=== PATIENT | female | born 1945 | race African-American/Black ===

== ENCOUNTER → 2017-08-07 13:48 | Outpatient (CLI) | payer MEDICARE, SELFPAY ==
--- NOTE | 2017-08-07 14:01 | VDLE_ITS ---
Reason For Study: Leg Edema RIGHT LEFT GSV is normal. CFV is compressible, spontaneous, phasic, CFV is compressible, spontaneous, phasic, competent, and demonstrates normal competent and demonstrates normal augmentation. augmentation. FV is compressible, spontaneous, phasic, competent and demonstrates normal augmentation. POP V is compressible, spontaneous, phasic, competent and demonstrates normal augmentation. T/P Trunk is compressible. PTV is compressible. RT PerV is compressible. Procedure Exam performed in department. A preliminary report was called and/or faxed to Latoya Desir. Interpretation Summary Deep veins of the right lower extremity are patent and compressible segmentally. There is no evidence of right lower extremity deep vein thrombosis. Valvular competence appears intact within the proximal deep venous system on the right . The right greater saphenous vein appears patent and compressible segmentally. Ordering Physician: Latoya Desir Referring Physician: Phil Zelaya Performed By: Kesha Torrez, GABRIELLE, RVT
== END ==
PROVIDERS: Family Provider Family Medicine; PCP Family Medicine
DX: R60.0 Localized edema (principal)
CPT/HCPCS: 93971

== ENCOUNTER → 2017-08-19 15:23 | Outpatient (CLI) | payer MEDICARE, SELFPAY ==
[2017-08-19 17:46] LABS: Albumin, Serum 3.7 g/dL (3.2-5.0); BUN 21 mg/dL (7-18); BUN/Creat Ratio 17.6 RATIO (10-20); Calcium,Total 9.5 mg/dL (8.5-10.1); Chloride 106 mmol/L (98-107); Creatinine, Serum 1.19 mg/dL (0.55-1.02); EST Glomerular Filtration Rate 47 mL/min (>60); Est Glom Filt Rate - Afr Amer 57 mL/min (>60); Glucose 78 mg/dL (74-106); Phosphorus 2.2 mg/dL (2.5-4.9); Potassium 4.2 mmol/L (3.5-5.1); Sodium Level 140 mmol/L (136-145)
== END ==
PROVIDERS: Family Provider Family Medicine; PCP Family Medicine; Visit Provider Internal Medicine Nephrology
DX: N17.9 Acute kidney failure, unspecified (principal)
CPT/HCPCS: 36415; 80069

== ENCOUNTER → 2017-09-15 12:00 | Outpatient (CLI) | payer MEDICARE, SELFPAY ==
[2017-09-15 13:03] LABS: Albumin, Serum 3.6 g/dL (3.2-5.0); BUN 18 mg/dL (7-18); BUN/Creat Ratio 16.2 RATIO (10-20); Calcium,Total 9.4 mg/dL (8.5-10.1); Chloride 106 mmol/L (98-107); Creatinine, Serum 1.11 mg/dL (0.55-1.02); EST Glomerular Filtration Rate 51 mL/min (>60); Est Glom Filt Rate - Afr Amer 62 mL/min (>60); Glucose 107 mg/dL (74-106); Phosphorus 2.7 mg/dL (2.5-4.9); Potassium 4.1 mmol/L (3.5-5.1); Sodium Level 139 mmol/L (136-145)
== END ==
PROVIDERS: Family Provider Family Medicine; PCP Family Medicine; Visit Provider Internal Medicine Nephrology
DX: N17.9 Acute kidney failure, unspecified (principal)
CPT/HCPCS: 36415; 80069

== ENCOUNTER 2018-01-11 15:05 | Emergency (ER) | payer MEDICARE, SELFPAY ==
[2018-01-11 15:06] VITALS: BP 141/90; PULSE 61; RESP 18; TEMP 36.2; O2SAT 98; BMI 44.9
--- NOTE | 2018-01-11 15:08 | RAD_ITS ---
STUDY: X-RAY - RIGHT FOOT CLINICAL: Female, 73 years old. Pain of the great toe following recent injury. TECHNIQUE: 3 view(s) of the foot. COMPARISON: None. FINDINGS: There is a plantar calcaneal spur. Normal visualized subtalar, talonavicular, calcaneocuboid, tarsal and tarsometatarsal articulations. Normal metatarsi. Normal metatarsophalangeal joint of the great toe. Normal tibial and fibular sesamoid bones. Normal interphalangeal joint of the great toe. Nondisplaced oblique fracture of the proximal phalanx of the great toe. Normal second through fifth metatarsophalangeal joints. Normal interphalangeal joints and phalanges of the lesser toes. Diffuse soft tissue swelling. RAD/Foot min 3 Views IMPRESSION: Nondisplaced oblique fracture of the middle phalanx of the great toe with diffuse soft tissue swelling. Plantar spur. Electronically Signed: Gianfranco Shea MD at 15:36 EDT Tel [phone], Service support ,
--- NOTE | 2018-01-11 16:17 | ED.VISSUMM ---
- ER Visit Summary Date of Service: 01/11/18 Chief Complaint: Toe pain History of Present Illness: The patient is a 73 F with right great toe pain. This has been going on for a week. The patient started to have the pain after she fell on the stairs. Denies any other injuries or complaints. Physical Examination: Right great toe diffusely swollen. Tender to palpation. Skin intact. Neurovascular intact distally. Test Results: X-rays show a fracture through the middle phalanx of the great toe. Emergency Department Course and Treatment: Patient placed in a boot. She has a walker at home to use. Percocet. Rest, ice, elevate. Treatment Plan: As above Disposition: Discharged Impression: 1. Right great toe fracture This note was generated with TeraDi[employer] dictation software. It may contain incorrect words, spelling, and punctuation that were not noted in review of the chart prior to signing ED Disposition - Plan for ED Patient: Chief Complaint: Lower Extremity Injury Referrals: Tracy Shelton MD [Primary Care Provider] -
--- NOTE | 2018-01-11 16:19 | ED.DEP ---
ED Disposition - Plan for ED Patient: Chief Complaint: Lower Extremity Injury Instructions: ED Fx Toe Closed Prescriptions: Oxycodone HCl/Acetaminophen [Percocet 5/325] 1 tab PO Q6H PRN PRN 3 Days #12 tab PRN Reason: Pain Referrals: Phil Small DPM [STAFF PHYSICIAN] -
[2018-01-11 16:21] VITALS: PULSE 88; RESP 16; O2SAT 99
== END 2018-01-11 16:31 | disposition home or self-care (01) ==
LOC: ED 16:02
PROVIDERS: Emergency Provider Emergency Medicine; Family Provider Internal Medicine; PCP Internal Medicine
DX: S92.491A Other fracture of right great toe, initial encounter for closed fracture (principal); W10.9XXA Fall (on) (from) unspecified stairs and steps, initial encounter; Y93.9 Activity, unspecified
CPT/HCPCS: 73630; 99282

== ENCOUNTER → 2018-12-03 14:00 | Outpatient (CLI) | payer MEDICARE, SELFPAY ==
[2018-12-03 15:08] LABS: Absolute Lymphocyte Count 1.69 X10^3/uL (0.83-4.51); Absolute Neutrophil Count 2.7 X10^3/uL (2.0-7.7); Basophil# 0.03 X10^3/uL; Basophil% 0.6 % (0-1); Eosinophil# 0.17 X10^3/uL; Eosinophils% 3.4 % (0-5); Hematocrit 35.6 % (37-47); Hemoglobin 10.7 g/dL (12.0-15.0); Lymphocyte # 1.69 X10^3/ul (4.0); Lymphocyte % 33.4 % (19-41); Mean Corp Hgb Conc 30.1 g/dL (32-36); Mean Corpuscular Hgb 27.9 pg (27.0-32.0); Mean Platelet Vol. 10.9 fl (6.2-12.0); Monocyte# 0.51 X10^3/uL; Monocyte% 10.1 % (0-10); NRBC Flagged by Analyzer 0 % (0-5); Neutrophil # 2.65 X10^3/uL (2.7-7.7); Neutrophil % 52.3 % (47-70); Platelet Count 204 K/mm3 (150-450); RBC Distribution Width CV 12.3 % (11.6-14.6); RBC Distribution Width SD 41.6 fl (35.1-43.9); Red Blood Count 3.83 M/mm3 (4.2-5.4); White Blood Count 5.1 K/mm3 (4.4-11.0)
[2018-12-03 15:18] LABS: Erythrocyte Sedimentation Rate 13 mm/hr (0-30)
[2018-12-03 15:25] LABS: CRP 8.62 mg/L (0.0-3.0)
== END ==
PROVIDERS: Family Provider Internal Medicine; PCP Internal Medicine; Referring Provider Physician Assistant; Visit Provider Physician Assistant
DX: Z96.642 Presence of left artificial hip joint (principal)
CPT/HCPCS: 36415; 85025; 85652; 86140

== ENCOUNTER → 2018-12-23 10:01 | Outpatient (CLI) | payer MEDICARE, SELFPAY ==
--- NOTE | 2018-12-23 10:03 | NM_ITS ---
CLINICAL: 73-year-old female with reported history of painful left hip arthroplasty operated approximately 11 years previous. LIMITED 99m Tc MDP THREE PHASE BONE SCINTIGRAPHY COMPARISON: None available FINDINGS: Following the intravenous administration of 27.6 mCi of 99m Tc MDP, three-phase bone acquisitions of the pelvis reveal: 1. The flow and immediate static blood pool acquisitions demonstrate normal arterial and venous phase distribution of the radiopharmaceutical. 2. Delayed images depict mild increased radiopharmaceutical concentration identified in the intertrochanteric aspect of the symptomatic left hip arthroplasty in greater trochanteric aspect of the presumed nonpainful right hip prosthesis. 3. Facilitated tracer concentration is identified in the third and fifth lumbar vertebra, posterior midline sacrum and visualized knee articulations bilaterally. 4. The remaining limited skeletal structures are scintigraphically unremarkable. NM/Bone Scan Three Phase IMPRESSION: 1. The increase in radiopharmaceutical concentration identified in the intertrochanteric aspect of the symptomatic left hip prosthesis may represent minimal loosening in the setting of operative intervention > 2 years prior to the current presentation. If an infectious etiology is a diagnostic consideration, correlation with labeled leukocyte imaging is recommended. 2. 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 Electronically Signed: Kel Rocha DO at 23:37 EDT Tel , Service support ,
== END ==
PROVIDERS: Family Provider Internal Medicine; PCP Internal Medicine; Referring Provider Physician Assistant; Visit Provider Physician Assistant
DX: Z96.642 Presence of left artificial hip joint (principal)
CPT/HCPCS: 78315

== ENCOUNTER → 2023-03-03 | Outpatient (CLI) | payer MEDICARE, SELFPAY ==
--- NOTE | 2023-03-03 10:30 | PET_ITS ---
EXAMINATION: FDG PET/CT ? INDICATIONS: 78-year-old female with a history of breast carcinoma, presenting for restaging examination. ? COMPARISON EXAMINATION: None available. ? INDEX LESION SIZE SUV INTERPRETATION Breast (n=multiple) 28.5 mm, largest 3.7 max Fulfills quantitative criteria for malignant transformation ? TECHNIQUE: Following the intravenous administration of 15.8 mCi of F-18 deoxyglucose via the right antecubital fossa, multiplanar image acquisitions of the head, neck, chest, abdomen and pelvis to the level of the midthigh, obtained at one-hour post radiopharmaceutical administration contemporaneously interpreted with the current CT of the chest, abdomen and pelvis dated 03/03/2023 via coregistration reveal: ? SERUM GLUCOSE LEVEL:? 106 mg/dL? HEIGHT:?? 61 inches WEIGHT:?? 240 pounds ? FINDINGS: ? HEAD/NECK:? There is no evidence of abnormal increased glucose metabolism in the pharyngeal mucosal space, parapharyngeal space, oropharynx, bilateral-lateral and anterior neck, hypopharynx and distribution of the larynx. ? The visualized portion of the cerebral cortical-subcortical structures demonstrate symmetric and preserved glucose metabolism. ? CHEST:? Multifocally increased radiopharmaceutical concentration is defined within the left breast. The calculated maximum standard uptake value is 3.7. The largest corresponding soft tissue density demonstrates a maximal axial diameter of 28.5 mm.? ? CT of the chest demonstrates the following anatomic characteristics: There are no parenchymal densities-nodules defined in the right and left hemithorax with quantitatively significant increased glucose concentration. Bilateral axillary soft tissue densities are ametabolic. A noncalcified, rounded parenchymal density noted in the left mid posteromedial lung zone, superior segment of left lower lobe, is ametabolic. ? ABDOMEN/PELVIS:? Normal physiologic distribution of the radiopharmaceutical is identified in the hepatic (0.5) and splenic parenchyma, both renal units, urinary bladder, and visualized intestinal tract. Diffuse intestinal tract is identified in all four quadrants of the abdomen and pelvis. ? CT of the abdomen and pelvis is remarkable for the following: Beam-hardening artifact attributed to bilateral hip arthroplasties compromise evaluation of the lower pelvic CT acquisition. Subcentimeter bilateral inguinal soft tissue densities are ametabolic. Atherosclerotic calcification is defined in the abdominal aorta without evidence of dilatation, aneurysm formation. Pelvic arterial calcification is observed. Cholelithiasis is defined. Cyst formation is noted in the left kidney. ? SKELETAL:? Degenerative changes defined in the thoracic and lumbar spine demonstrate no evidence of increased glucose metabolism. There are no sclerotic, mixed sclerotic-lytic, or primarily lytic changes defined in the axial skeletal structures with evidence of increased FDG uptake. ? PET/PET/CT Tumor Base -Thigh Subs IMPRESSION: 1. ABNORMAL EXAMINATION INDICATIVE OF MALIGNANT-VIABLE NEOPLASM. 2. Increased tracer distribution defined in the left breast in several different locations fulfills quantitative criteria for malignant transformation. 3. No other quantitatively significant hypermetabolic abnormalities are noted. Electronic Signature Kel Rocha D.O. Accurate Quantification of SUVs for this report are calculated using the exclusive [employer]. (U.S. Patent No. [id number] [id number] B2 [phone] [place] patent [phone] [id number] [phone]). Standardization and correction of the FDG SUV metric via [employer] technology allow for vendor non-specific objective quantitative examination comparison and optimization of the sensitivity and specificity of the FDG PET-CT examination. . [email or web address] ? Electronically Signed: Kel Rocha DO at 23:34 EST ,
== END | disposition home or self-care (01) ==
PROVIDERS: PCP Internal Medicine; Referring Provider Internal Medicine Hematology & Oncology; Visit Provider Internal Medicine Hematology & Oncology
DX: C50.512 Malignant neoplasm of lower-outer quadrant of left female breast (principal); Z17.0 Estrogen receptor positive status [ER+]
CPT/HCPCS: 78815; A9552

== ENCOUNTER 2024-04-08 18:02 | Observation (INO) | payer MEDICARE, SELFPAY ==
[2024-04-08] VITALS (11 sets, daily range): BP systolic 164–229; BP diastolic 74–104; PULSE 64–87; RESP 15–20; TEMP 36.6–36.9; O2SAT 95–98; BMI 48.3
--- NOTE | 2024-04-08 18:15 | ED.RN ---
PT. EXPRESSED SHE WAS FRUSTRATED THAT A PT. WAS SEEN BY THIS TRIAGE NURSE BEFORE THEM. I ATTEMPTED TO EDUCATE PT. AND HER S/O OF THE TRIAGE SYSTEM WHICH HELPED TO CALM THE PT. AT THE TIME.
--- NOTE | 2024-04-08 18:17 | EDS_ITS ---
<Statement entered by Catrachito Joseph DO - 04/09/24 00:45> Patient was seen and examined with physician hotel administrative assistant Chelsy All components of the history and physical confirmed and agreed. History of present illness and physical exam: Patient is a 79-year-old female with past medical hypertension, hyperlipidemia, GERD who presents to the emergency department with a chief complaint of shortness of breath on exertion. States that for the past several days she noted that she can only walk a very short period of time without becoming very winded and short of breath. She states that she has to sit down and rest before she can catch her breath. Patient states that she does not wear oxygen at home. Patient denies any recent travel history denies any history of blood clots. Review of systems: Agree with above Physical exam: Agree with above MDM Patient is a 79-year-old female who presents to the emergency department chief complaint of shortness of breath on exertion. On the differential diagnose includes but limited to upper respiratory infection secondary viral etiology, pneumonia, pneumothorax, CHF. Once workup is obtained reviewed she will be reevaluated. Patient CBC showed a white blood count of 3, hemoglobin 10.8, platelet count was noted be 199. Patient sodium normal at 141, potassium was 3.8, creatinine was 1.05. Patient's troponin was noted be 8 with a proBNP noted be 62.9 however she is obese and this could be falsely low. Patient's EKG was reviewed and independently interpreted by myself showed sinus rhythm with a rate of 76 bpm. Patient's chest x-ray reviewed by myself and by radiology which showed no acute cardiopulmonary processes. Patient was ambulated here in the emergency department and she had evidence hypoxia to 88% on room air and was very short of breath. Patient was noted be hypertensive here in the emergency department as well however her blood pressure slowly dropped therefore we held off on further treatment for this. At this point time to discuss case with hospitalist for admission Dr. Gracia who accept the patient for admission. Patient was notified and is agreeable this plan as well as her significant other at bedside all question concerns answered. Plan: Final impression: Dyspnea on exertion Hypertension Disposition: Patient will be admitted to the hospital further evaluation management Supervising attending attestation: Catrachito Joseph D.O. [facility] History of Present Illness Chief Complaint: Shortness of Breath Narrative Narrative: 79-year-old female with past medical history of HTN, HLD, GERD presents with dyspnea on exertion for about a week. She states she is short of breath just with taking a few steps in her home. She has to sit and rest. She has no chest pain. She denies cardiopulmonary history. She does not wear home oxygen. [facility] Medical History (Updated 04/08/24 @ 20:00 by NAY Valera) High cholesterol HTN (hypertension) Home Medications ?Medication ?Instructions ?Recorded ?Last Taken ?Type Omeprazole [Prilosec] 40 mg PO DAILY 01/21/13 Unknown History cholecalciferol (vitamin D3) 50 2,000 unit PO DAILY 01/21/13 Unknown History mcg (2,000 unit) tablet (Vitamin D3) metoprolol tartrate 100 mg tablet 50 mg PO DAILY 01/21/13 04/14/16 04:30 History biotin 2,500 mcg capsule 5,000 mcg PO DAILY 04/10/16 Unknown History cyanocobalamin (vitamin B-12) 2,000 mcg PO DAILY 04/10/16 Unknown History 2,000 mcg tablet diazepam 2 mg tablet 2 mg PO PRN PRN NERVOUS STOMACH 04/10/16 Unknown History anastrozole 1 mg tablet 1 mg PO DAILY 04/08/24 Unknown History hydrochlorothiazide 12.5 mg capsule 12.5 - 25 mg PO DAILY 04/08/24 Unknown History losartan 25 mg tablet 25 mg PO DAILY 04/08/24 Unknown History pravastatin 10 mg tablet 10 mg PO DAILY 04/08/24 Unknown History Allergy/AdvReac Type Severity Reaction Status Date / Time bupropion Allergy Unknown Verified 04/08/24 18:04 cimetidine (From Tagamet) Allergy Unknown Verified 04/08/24 18:04 cimetidine HCl (From Tagamet) Allergy Unknown Verified 04/08/24 18:04 hydrocodone bitartrate (From Allergy Unknown Verified 04/08/24 18:04 Vicodin) moexipril HCl (From Univasc) Allergy Unknown Verified 04/08/24 18:04 Social History Smoking Status: Never smoker ROS ROS ED ROS Narrative Constitutional: Negative for fever, chills, malaise. CVS: Negative for palpitations, chest pain, syncope. Respiratory: Positive for shortness of breath, cough. GI: Negative for abdominal pain, nausea, vomiting, diarrhea, melena, hematochezia. EXAM Physical Exam Narrative Exam Narrative: CONST: Patient sitting in no acute distress. EYES: Normal inspection. NECK: Normal inspection. RESP: No respiratory distress, CTAB. CVS: Regular rate and rhythm, no murmur, no gallop. ABD: Soft and nontender, no guarding or rebound, nondistended. SKIN: Color normal, no rash, warm, dry, intact. EXTREMITIES: Symmetric significant bilateral lower extremity lymphedema. NEURO: Alert and answering questions appropriately. PSYCH: Normal affect. Const Vital Signs: 04/08/24 18:04 04/08/24 18:55 04/08/24 19:05 Temperature 98 F 98 F Temperature Source Oral Temporal Pulse Rate 87 72 Respiratory Rate 16 20 H Respiratory Effort Normal Non-Labored Respiratory Depth Normal Respiratory Pattern Normal Blood Pressure 210/88 H 229/80 H Blood Pressure Mean 128 129 Pulse Ox 95 97 Oxygen Delivery Method Room Air Room Air Room Air 04/08/24 19:08 04/08/24 20:00 04/08/24 20:03 Temperature 98.3 F 98.3 F Temperature Source Oral Oral Pulse Rate 70 64 66 Respiratory Rate 18 20 H 16 Respiratory Effort Respiratory Depth Respiratory Pattern Blood Pressure 195/85 H 164/104 H 167/104 H Blood Pressure Mean 121 124 125 Pulse Ox 95 95 97 Oxygen Delivery Method Room Air Room Air Room Air 04/08/24 20:24 Temperature 98.3 F Temperature Source Pulse Rate 67 Respiratory Rate 15 Respiratory Effort Respiratory Depth Respiratory Pattern Blood Pressure 167/104 H Blood Pressure Mean 125 Pulse Ox 98 Oxygen Delivery Method MDM MDM MDM Narrative Medical decision making narrative: History gathered from: Patient, spouse Differential includes but not limited to: Viral URI, pneumonia, ACS, obesity hypoventilation Patient reports cough and dyspnea on exertion. She appears well and nontoxic. BP was 210/88 with otherwise normal vital signs. She reports compliance with chlorthalidone and metoprolol in the morning. Heart is regular and lungs are clear. She has bilateral lymphedema which she states is chronic. Labs show chronic leukopenia at 3.0 and anemia at 10.8. Platelets are normal at 199. Chemistry and renal function overall unremarkable. BNP is normal at 62.9. CXR negative, respiratory viral swab is also negative. With ambulation she was very dyspneic and dropped to 88%. Case was discussed with the hospitalist for admission. Lab Data Attestation: I reviewed the patient's lab results. Labs: Laboratory Results - last 24 hr 04/08/24 18:55 WBC 3.0 L RBC 3.77 L Hgb 10.8 L Hct 34.7 L MCV 92.0 MCH 28.6 MCHC 31.1 L RDW Std Deviation 42.8 RDW Coeff of Danyel 12.7 Plt Count 199 MPV 10.6 Immature Gran % (Auto) 0.300 Neut % (Auto) 42.3 L Lymph % (Auto) 32.7 Craig % (Auto) 18.3 H Eos % (Auto) 4.7 Baso % (Auto) 1.7 H Absolute Neuts (auto) 1.3 L Absolute Lymphs (auto) 0.98 Nucleated RBC % 0 Sodium 141 Potassium 3.8 Chloride 109 H Carbon Dioxide 30.0 Anion Gap 2 L BUN 13 Creatinine 1.05 H Est GFR (MDRD) Af Amer 65 Est GFR (MDRD) Non-Af 54 L BUN/Creatinine Ratio 12.4 Glucose 156 H Calcium 9.7 Troponin I High Sens 8 B-Natriuretic Peptide 62.9 Radiography Diagnostic Testing: Clinical Impression(s) from Imaging Studies Chest X-Ray 04/08/24 19:20 IMPRESSION: No radiographic evidence of acute cardiopulmonary disease. Electronically Signed: Rolan Galdamez MD at 19:40 EST , ED attending interpretation of 2 view chest x-ray shows normal heart size, no acute infiltrate, edema, or effusion. EKG Initial EKG: Attestation: I personally reviewed and interpreted this EKG as follows: Interpretation: Sinus Rhythm and No Acute Injury Pattern Comments: Normal sinus rhythm at 76 bpm Normal axis, normal intervals No acute ischemic change Discharge Plan Triage Chief Complaint: Shortness of Breath ED Midlevel Provider: Chelsy Smith ED Provider: Catrachito Joseph Dx/Rx/DC Orders Clinical Impression: Dyspnea on exertion, Hypoxia, Edema, peripheral, Chronic anemia, Chronic leukopenia Prescriptions: No Action metoprolol tartrate 100 MG tablet 50 mg PO DAILY Patient Comments: HEART RATE/BLOOD PRESSURE cholecalciferol (vitamin D3) [Vitamin D3] 2,000 UNIT tablet 2,000 unit PO DAILY Patient Comments: SUPPLEMENT Omeprazole [Prilosec] 40 MG capsule 40 mg PO DAILY Patient Comments: ACID REFLUX diazepam 2 MG tablet 2 mg PO PRN PRN (Reason: NERVOUS STOMACH) biotin 2,500 MCG capsule 5,000 mcg PO DAILY cyanocobalamin (vitamin B-12) 2,000 MCG tablet 2,000 mcg PO DAILY anastrozole 1 mg tablet 1 mg PO DAILY losartan 25 mg tablet 25 mg PO DAILY hydrochlorothiazide 12.5 mg capsule 12.5 - 25 mg PO DAILY pravastatin 10 mg tablet 10 mg PO DAILY Primary Care Provider: Tracy Shelton Referrals: Tracy Shelton MD [Primary Care Provider] - Print Language: Faroese
--- NOTE | 2024-04-08 18:50 | ED.RN ---
pt unhappy about having to wait in triage. pt felt that she should be brought back straight and not have to fill out the triage paper. this nurse went in to do a Covid/RSV/Swab and pt refused. Youre not sticking that up my nose. pt eventually decided she wanted the swab.
[2024-04-08 19:12] LABS: Absolute Lymphocyte Count 0.98 X10^3/uL (0.83-4.51); Absolute Neutrophil Count 1.3 X10^3/uL (2.0-7.7); Basophil# 0.05 X10^3/uL; Basophil% 1.7 % (0-1); Eosinophil# 0.14 X10^3/uL; Eosinophils% 4.7 % (0-5); Hematocrit 34.7 % (37-47); Hemoglobin 10.8 g/dL (12.0-15.0); Lymphocyte # 0.98 X10^3/ul (0.83-4.51); Lymphocyte % 32.7 % (19-41); Mean Corp Hgb Conc 31.1 g/dL (32-36); Mean Corpuscular Hgb 28.6 pg (27.0-32.0); Mean Platelet Vol. 10.6 fl (6.2-12.0); Monocyte# 0.55 X10^3/uL; Monocyte% 18.3 % (0-10); NRBC Flagged by Analyzer 0 % (0-5); Neutrophil # 1.27 X10^3/uL (2.7-7.7); Neutrophil % 42.3 % (47-70); Platelet Count 199 K/mm3 (150-450); RBC Distribution Width CV 12.7 % (11.6-14.6); RBC Distribution Width SD 42.8 fl (35.1-43.9); Red Blood Count 3.77 M/mm3 (4.2-5.4)
--- NOTE | 2024-04-08 19:20 | RAD_ITS ---
EXAM: XR CHEST, 2 VIEWS CLINICAL INDICATION: cough TECHNIQUE: Frontal and lateral views of the chest. COMPARISON: 09/15/2013 FINDINGS: LUNGS AND PLEURAL SPACES: Unremarkable. No consolidation or edema. No pneumothorax. No effusion. HEART: Unremarkable. Cardiac silhouette not enlarged. MEDIASTINUM: Central airways and mediastinal contour are unremarkable. BONES/JOINTS: Unremarkable. No acute fracture. SOFT TISSUES: Unremarkable. RAD/Chest PA and Lateral IMPRESSION: No radiographic evidence of acute cardiopulmonary disease. Electronically Signed: Rolan Galdamez MD at 19:40 EST ,
[2024-04-08 19:24] LABS: Anion Gap 2 (5-15); BUN 13 mg/dL (7-18); BUN/Creat Ratio 12.4 RATIO (10-20); Calcium,Total 9.7 mg/dL (8.5-10.1); Chloride 109 mmol/L (98-107); Creatinine, Serum 1.05 mg/dL (0.55-1.02); EST Glomerular Filtration Rate 54 mL/min (>60); Est Glom Filt Rate - Afr Amer 65 mL/min (>60); Glucose 156 mg/dL (74-106); Potassium 3.8 mmol/L (3.5-5.1); Sodium Level 141 mmol/L (136-145); Troponin-I HS 8 pg/mL (3.0-54.0)
[2024-04-08 19:27] LABS: BNP,B-Type NATRIURETIC PEPTIDE 62.9 pg/mL (0-100)
--- NOTE | 2024-04-08 21:26 | HP.PCM.HOS_ITS ---
[facility] - General General Date of Admission: 04/08/24 Date of Service: 04/08/24 Chief Complaint: SOB. HPI Narrative IGNACIA FORTE, is a 79 F with a past medical history of essential hypertension; on losartan, metoprolol and hydrochlorothiazide, hyperlipidemia; on pravastatin, morbid obesity; with BMI of 48.3 this admission, history of suspected Left breast CA (2016); with patient declining excisional biopsy on anastrozole, history of colonic polyposis; s/p polypectomy (2016), history of mild gastritis on EGD (2013), chronic leukopenia, chronic anemia, history of anxiety causing nervous stomach; on as needed diazepam, history of iridocyclitis (2016), history of GERD; previously on omeprazole but symptoms now controlled by 4 chocolate candies daily, OA and chronic bilateral lower extremity lymphedema who presents to [facility] ER complaining of shortness of breath. Mrs. Forte reports her symptoms began approximately 1 week prior to admission with initially mild dyspnea on exertion that progressed to shortness of breath just taking a few steps in her home causing her to come in for further evaluation and treatment. She states that sitting and resting helps partially relieve her dyspnea with additional complaints of intermittent nonproductive cough and mild wheezing. She states she has been taking her antihypertensive medications as prescribed. She denies associated chest pain, history of coronary artery disease, history of VTE and she does not wear home oxygen. There was no report of fever, chills, nausea, vomiting, diarrhea, constipation, blood in stools or headache but she does admit to recently being exposed to a sick family member who recently due to complications related to a severe urinary infection. The patient's was present at the bedside and he helped to augment the history. In the ER she was noted to have an initial elevated blood pressure of 210/88 mmHg consistent with suspected Hypertensive Urgency complicated by clinical evidence of suspected Acute Bronchitis and Acute Respiratory Insufficiency with patient started on 2L NC after oxygen saturation dropped to 88% with ambulation with severe dyspnea. She was then admitted to the PCU under observation status for ongoing care for stay that is expected to be less than 2 midnights. [facility] Medical History High cholesterol HTN (hypertension) Home Medications ?Medication ?Instructions ?Recorded ?Last Taken ?Type Omeprazole [Prilosec] 40 mg PO DAILY 01/21/13 Unknown History cholecalciferol (vitamin D3) 50 2,000 unit PO DAILY 01/21/13 Unknown History mcg (2,000 unit) tablet (Vitamin D3) metoprolol tartrate 100 mg tablet 50 mg PO DAILY 01/21/13 04/14/16 04:30 History biotin 2,500 mcg capsule 5,000 mcg PO DAILY 04/10/16 Unknown History cyanocobalamin (vitamin B-12) 2,000 mcg PO DAILY 04/10/16 Unknown History 2,000 mcg tablet diazepam 2 mg tablet 2 mg PO PRN PRN NERVOUS STOMACH 04/10/16 Unknown History anastrozole 1 mg tablet 1 mg PO DAILY 04/08/24 Unknown History hydrochlorothiazide 12.5 mg capsule 12.5 - 25 mg PO DAILY 04/08/24 Unknown History losartan 25 mg tablet 25 mg PO DAILY 04/08/24 Unknown History pravastatin 10 mg tablet 10 mg PO DAILY 04/08/24 Unknown History Allergy/AdvReac Type Severity Reaction Status Date / Time bupropion Allergy Unknown Verified 04/08/24 18:04 cimetidine (From Tagamet) Allergy Unknown Verified 04/08/24 18:04 cimetidine HCl (From Tagamet) Allergy Unknown Verified 04/08/24 18:04 hydrocodone bitartrate (From Allergy Unknown Verified 04/08/24 18:04 Vicodin) moexipril HCl (From Univasc) Allergy Unknown Verified 04/08/24 18:04 Surgical History History of appendectomy Social History Smoking Status: Never smoker ROS ROS Narrative Review of Systems: Constitutional: Patient denies fever or chills. Eyes: Patient denies changes vision or discharge from eyes. ENT: Patient denies runny nose, sore throat or ear pain. Resp: Patient admits to dyspnea on exertion that progressed to SOB at rest with nonproductive cough as per HPI. CV: Patient denies chest pain, palpitations, heart racing, near syncope or syncope. GI: Patient denies abdominal pain, nausea, vomiting, diarrhea or constipation. : Patient denies dysuria or hematuria. MSK: Patient denies arthralgias or myalgias. Skin: Patient denies rash, abscess or jaundice. Psych: Patient denies symptoms of uncontrolled depression or anxiety. Neuro: Patient denies headache, paresthesias or focal neurologic deficits. Allergy: Patient denies lip swelling, tongue swelling or urticaria. Hematology: Patient denies easy bleeding or easy bruisability. Endocrinology: Patient denies polyuria, polydipsia or polyphagia. 14 point review of systems otherwise negative except for positives noted above in HPI. Vital Signs Vital Signs Vital Signs: 04/08/24 18:04 04/08/24 18:55 04/08/24 19:05 Temperature 98 F 98 F Temperature Source Oral Temporal Pulse Rate 87 72 Respiratory Rate 16 20 H Respiratory Effort Normal Non-Labored Respiratory Depth Normal Respiratory Pattern Normal Blood Pressure 210/88 H 229/80 H Blood Pressure Mean 128 129 Pulse Ox 95 97 Oxygen Delivery Method Room Air Room Air Room Air 04/08/24 19:08 04/08/24 20:00 04/08/24 20:03 Temperature 98.3 F 98.3 F Temperature Source Oral Oral Pulse Rate 70 64 66 Respiratory Rate 18 20 H 16 Respiratory Effort Respiratory Depth Respiratory Pattern Blood Pressure 195/85 H 164/104 H 167/104 H Blood Pressure Mean 121 124 125 Pulse Ox 95 95 97 Oxygen Delivery Method Room Air Room Air Room Air 04/08/24 20:24 Temperature 98.3 F Temperature Source Pulse Rate 67 Respiratory Rate 15 Respiratory Effort Respiratory Depth Respiratory Pattern Blood Pressure 167/104 H Blood Pressure Mean 125 Pulse Ox 98 Oxygen Delivery Method Weight Weight: 264 lb 1.82 oz Body Mass Index (BMI) 48.3 Physical Exam Const alert, oriented x3 and no apparent distress Constitutional Narrative: Morbidly obese. General Appearance: cooperative HEENT normocephalic, head/scalp atraumatic, hearing grossly normal bilaterally and moist oral mucous membranes Eyes PERRL and EOMs intact bilaterally Neck no lymphadenopathy and supple Resp Resp Narrative: Diminished breath sounds throughout with faint expiratory wheezing. Auscultation: wheezes Cardio regular rate and regular rhythm GI normal to inspection, nondistended, normoactive bowel sounds, soft to palpation, non-tender and non-distended GI Narrative: Morbidly obese. Extremity Extremity Narrative: +3 chronic lower extremity lymphedema noted with no signs of vascular compromise. Skin Skin Narrative: Patient has no evidence of rash, abscess or jaundice. Neuro oriented x3, CN's II-XII intact bilaterally, moves all extremities and no focal motor deficits Sensorium / Orientation: awake, alert, oriented to person, oriented to place and oriented to time Speech: speech normal Psych affect normal Results Medical Records Data Attestation: I reviewed the patient's medical records Lab / Micro Data Attestation: I reviewed the patient's lab results. 04/08/24 18:55 04/08/24 18:55 Labs: Laboratory Results - last 24 hr 04/08/24 18:55: WBC 3.0 L, RBC 3.77 L, Hgb 10.8 L, Hct 34.7 L, MCV 92.0, MCH 28.6, MCHC 31.1 L, RDW Std Deviation 42.8, RDW Coeff of Danyel 12.7, Plt Count 199, MPV 10.6, Immature Gran % (Auto) 0.300, Neut % (Auto) 42.3 L, Lymph % (Auto) 32.7, [place] % (Auto) 18.3 H, Eos % (Auto) 4.7, Baso % (Auto) 1.7 H, Absolute Neuts (auto) 1.3 L, Absolute Lymphs (auto) 0.98, Nucleated RBC % 0, Sodium 141, Potassium 3.8, Chloride 109 H, Carbon Dioxide 30.0, Anion Gap 2 L, BUN 13, C reatinine 1.05 H, Est GFR (MDRD) Af Amer 65, Est GFR (MDRD) Non-Af 54 L, BUN/Creatinine Ratio 12.4, Glucose 156 H, Calcium 9.7, Troponin I High Sens 8, B-Natriuretic Peptide 62.9 Micro: Microbiology 04/08/24 18:50 Mucosa - Nose SARS-CoV-2, Influenza & RSV (PCR) - Final Imaging Radiology Impression Chest X-Ray 04/08/24 19:20 IMPRESSION: No radiographic evidence of acute cardiopulmonary disease. Electronically Signed: Rolan Galdamez MD at 19:40 EST , Assessment & Plan Assessment/Plan (1) Hypertensive urgency: (2) Acute bronchitis: QUALIFIERS: Bronchitis organism: unspecified organism Qualified Code(s): J20.9 - Acute bronchitis, unspecified (3) Respiratory insufficiency: (4) Morbid obesity with BMI of 45.0-49.9, adult: (5) Pickwickian syndrome: (6) Chronic acquired lymphedema: PLAN: Plan 1. Hypertensive Urgency; with initial blood pressure of 210/80 mmHg - Admit to PCU under observation status. Continue on losartan, metoprolol and hydrochlorothiazide plus give furosemide IV once. Give prn IV Hydralazine for systolic blood pressure > 160 mmHg. Serialize troponin. Check echocardiogram to evaluate LVEF. Give Tylenol prn for pain or fever. Slightly elevated d- dimer of 0.62 noted on admission is in normal range when adjusted for age mitigating against possible VTE. 2. Acute Bronchitis; with mild wheezing and nonproductive cough with malaise complicating #1 - Start doxycycline 100 mg p.o. twice daily plus add Medrol Dosepak and continue vitamin D3 supplementation plus add vitamin C and zinc. Give nebulizers as needed. 3. Acute Respiratory Insufficiency attributable to #1 & #2 - Wean supplemental oxygen as tolerated. 4. Morbid Obesity; with BMI of 48.3 this admission with chronic lower extremity lymphedema and suspected Pickwickian syndrome/OHS compounding #1 - #3 - Weight loss will be recommended. Check TSH. This complicates her case and may hamper recovery. 5. Hyperlipidemia; on pravastatin - Resume pravastatin and check Lipid Profile in light of #1. 6. History of suspected Left breast CA (2017); with patient declining excisional biopsy on anastrozole - Maintain on anastrazole as before. 7. History of colonic polyposis; s/p polypectomy (2017) - Noted. 8. History of mild gastritis on EGD (2013) - Noted. 9. Chronic Leukopenia - WBC of 3K noted on admission. Check HIV screening test. 10. Chronic anemia - Stable with hemoglobin of 10.8 g/dL and MCV of 92 fL present on admission. 11. History of anxiety causing nervous stomach; on as needed diazepam - Resume prn diazepam as previous. 12. History of iridocyclitis (2017) - Noted with no evidence of recurrence. 13. History of GERD; previously on omeprazole - Restart PPI if symptoms develop. 14. OA - Give Tylenol prn. 15. DVT prophylaxis - Lovenox 40 mg sq BID. Total time: Approximately (but not less than) 70 minutes. Charges/Coding Visit Charges OBSV E&M: 38498 Observ/hosp same date L2
--- NOTE | 2024-04-08 21:51 | ECHOD_ITS ---
Reason For Study: Dyspnea/SOB Procedure This was a 2D Doppler, Color Flow transthoracic echocardiogram. Exam performed portable in patient room. Left Ventricle Normal LV size. Mild concentric left ventricular hypertrophy. The left ventricular ejection fraction is 65 %. Stage 1 diastolic dysfunction. Right Ventricle Normal right ventricle. Atria The left and right atria are normal. Mitral Valve Trivial mitral valve insufficiency. Tricuspid Valve Trivial tricuspid valve insufficiency. Unable to estimate RV systolic pressure due to insufficient tricuspid regurgitant envelope. Aortic Valve Trisinus/trileaflet aortic valve. Pulmonic Valve The pulmonic valve is not well visualized. Great Vessels Normal sized aortic root. Pericardium/Pleural No pericardial effusion. MMode/2D Measurements & Calculations LVIDd: 4.5 cm IVSd: 1.2 cm Ao root diam: 2.9 cm LVIDs: 2.8 cm LVPWd: 0.94 cm RVDd: 3.6 cm FS: 36.9 % LAV(MOD-bp): 62.6 ml LVAd ap4: 26.2 cm2 SV(MOD-sp4): 39.4 ml LAV(MOD-bp) Indexed: 29.5 ml/m2 LVLd ap4: 7.6 cm SI(MOD-sp4): 18.6 ml/m2 LAV(MOD-sp2): 63.5 ml EDV(MOD-sp4): 74.3 ml LAV(MOD-sp4): 52.4 ml EDV(sp4-el): 77.0 ml LVAs ap4: 15.5 cm2 LVLs ap4: 6.0 cm ESV(MOD-sp4): 35.0 ml ESV(sp4-el): 33.7 ml EF(MOD-sp4): 53.0 % EF(sp4-el): 56.2 % SV(sp4-el): 43.3 ml LA A4 area: 19.6 cm2 LA dimension(2D): 3.1 cm RA A4 area: 11.4 cm2 TAPSE: 1.9 cm Time Measurements MV dec time: 0.23 sec Doppler Measurements & Calculations MV E max adalid: 68.4 cm/sec Lat Peak E' Adalid: 9.6 cm/sec Med Peak E' Adalid: 8.3 cm/sec MV A max adalid: 75.6 cm/sec E/E' lat: 7.1 E/E' med: 8.2 MV E/A: 0.90 MV V2 max: 88.8 cm/sec MV P1/2t max adalid: 74.5 cm/sec Ao V2 max: 184.1 cm/sec MV max P.2 mmHg MV P1/2t: 76.3 msec Ao max P.6 mmHg MV V2 mean: 52.5 cm/sec Ao V2 mean: 122.4 cm/sec MV mean P.3 mmHg MV dec slope: 285.9 cm/sec2 Ao mean P.9 mmHg MV V2 VTI: 25.1 cm MVA(P1/2t): 2.9 cm2 Ao V2 VTI: 39.3 cm AV (velocity ratio): 0.67 LV V1 max: 118.6 cm/sec PA V2 max: 96.7 cm/sec LV V1 max P.6 mmHg PA V2 mean: 64.0 cm/sec LV V1 mean P.1 mmHg LV V1 mean: 83.8 cm/sec LV V1 VTI: 26.4 cm ECHO/Echo Complete Interpretation Summary Mild concentric left ventricular hypertrophy. The left ventricular ejection fraction is 65 %. Stage 1 diastolic dysfunction. Ordering Physician: Cale Palacio Performed By: Manuel Grijalva RCS
[2024-04-08 22:41] LABS: Cholesterol 190 mg/dL (200); High Density Lipoprotein 71 mg/dL; Triglycerides 138 mg/dL; Very Low Density Lipoprotein 28 mg/dL (5-40)
[2024-04-08 22:48] LABS: D-Dimer Quantitative (DVT/PE) 0.62 FEU/ug/m (0.27-0.49)
[2024-04-08] MEDS: 0.9% Saline Lock 10 ML Syringe IV (23:39)
[2024-04-08] MEDS: hydrALAZINE 20 MG/ML Vial 10 MG IV (23:39)
[2024-04-08] MEDS: 0.9% Normal Saline (1000mL) 1,000 ML 50 ML IV (23:45)
[2024-04-08] MEDS: Enoxaparin 40 MG/0.4 ML Syringe SC (23:52)
[2024-04-09] VITALS (14 sets, daily range): BP systolic 159–204; BP diastolic 61–98; PULSE 65–84; RESP 14–17; TEMP 36.6–37.2; O2SAT 94–98; BMI 48.3
[2024-04-09] MEDS: Doxycycline 100 MG CAPSULE PO ×2 (00:14→08:28)
[2024-04-09 00:19] LABS: Hemoglobin A1c 5.9 % (3.8-5.6)
[2024-04-09 00:35] LABS: Troponin-I HS 7 pg/mL (3.0-54.0)
[2024-04-09] MEDS: Metoprolol Tartrate 5 MG/5 ML Vial 2.5 MG IV (01:48)
[2024-04-09] MEDS: Furosemide 40 MG/4 ML Vial IV (01:49)
[2024-04-09] MEDS: 0.9% Saline Lock 10 ML Syringe IV (01:50)
[2024-04-09] MEDS: Acetaminophen 325 MG Tablet 650 MG PO ×2 (06:29→12:39)
[2024-04-09 06:43] LABS: Absolute Lymphocyte Count 1.22 X10^3/uL (0.83-4.51); Absolute Neutrophil Count 1.6 X10^3/uL (2.0-7.7); Basophil# 0.05 X10^3/uL; Basophil% 1.4 % (0-1); Eosinophil# 0.14 X10^3/uL; Hematocrit 33.8 % (37-47); Hemoglobin 10.6 g/dL (12.0-15.0); Lymphocyte # 1.22 X10^3/ul (0.83-4.51); Lymphocyte % 34.7 % (19-41); Mean Corp Hgb Conc 31.4 g/dL (32-36); Mean Corpuscular Hgb 28.4 pg (27.0-32.0); Mean Corpuscular Volume 90.6 fL (81-99); Mean Platelet Vol. 10.4 fl (6.2-12.0); Monocyte# 0.53 X10^3/uL; Monocyte% 15.1 % (0-10); NRBC Flagged by Analyzer 0 % (0-5); Neutrophil # 1.57 X10^3/uL (2.7-7.7); Neutrophil % 44.5 % (47-70); Platelet Count 176 K/mm3 (150-450); RBC Distribution Width CV 12.7 % (11.6-14.6); RBC Distribution Width SD 42.2 fl (35.1-43.9); Red Blood Count 3.73 M/mm3 (4.2-5.4); White Blood Count 3.5 K/mm3 (4.4-11.0)
[2024-04-09 07:41] LABS: ALB/GLOB Ratio 0.9 RATIO (0.9-2.4); AST(SGOT) 39 U/L (15-37); Alanine Aminotransfer ALT/SGPT 37 U/L (13-56); Albumin, Serum 3.1 g/dL (3.2-5.0); Alkaline Phosphatase 77 U/L (45-117); Anion Gap 4 (5-15); BUN 14 mg/dL (7-18); BUN/Creat Ratio 16.2 RATIO (10-20); Calcium,Total 9.4 mg/dL (8.5-10.1); Chloride 107 mmol/L (98-107); Creatinine, Serum 0.87 mg/dL (0.55-1.02); EST Glomerular Filtration Rate 67 mL/min (>60); Est Glom Filt Rate - Afr Amer 81 mL/min (>60); Estimated Creatinine Clearance 61.13 ml/min; Globulin 3.5 g/dL (2.2-4.2); Glucose 126 mg/dL (74-106); Magnesium 1.7 mg/dL (1.6-2.6); Potassium 3.3 mmol/L (3.5-5.1); Protein, Total 6.6 g/dL (6.4-8.2); Sodium Level 140 mmol/L (136-145)
[2024-04-09] MEDS: Metoprolol Tartrate 50 MG Tablet PO (08:23)
[2024-04-09] MEDS: Ascorbic Acid 500 MG Tablet 1000 MG PO (08:23)
[2024-04-09] MEDS: hydroCHLOROthiazide 25 MG Tablet PO (08:23)
[2024-04-09] MEDS: Cyanocobalamin 500 MCG Tablet 2000 MCG PO (08:24)
[2024-04-09] MEDS: Cholecalciferol (VIT D3) 25 MCG TABLET (1,000 UNITS) 50 MCG PO (08:24)
[2024-04-09] MEDS: Zinc Sulfate 50 mg zinc (220 mg) ORAL capsule PO (08:24)
[2024-04-09] MEDS: Enoxaparin 40 MG/0.4 ML Syringe SC (08:26)
[2024-04-09] MEDS: Losartan Potassium 25 MG Tablet PO ×2 (08:26→10:39)
[2024-04-09] MEDS: Anastrozole 1 MG TABLET PO (08:27)
[2024-04-09] MEDS: MethylPREDNISolone DosePak 4 MG BOX PO ×2 (08:28→12:40)
[2024-04-09] MEDS: Ensure Plus High Protein 120 ML LIQUID PO (08:29)
--- NOTE | 2024-04-09 09:00 | PN.HOSP_ITS ---
Reason for Visit Reason for Visit: Diagnoses Morbid (severe) obesity due to excess calories (04/08/24) Morbid (severe) obesity with alveolar hypoventilation (04/08/24) Hypertensive urgency (04/08/24) Lymphedema, not elsewhere classified (04/08/24) Acute bronchitis, unspecified (04/08/24) Other abnormalities of breathing (04/08/24) Body mass index [BMI] 45.0-49.9, adult (04/08/24) Subjective Subjective Breathing better, but still wheezing. States that since she was sick, she was not taking her HCTZ daily. Objective Data Objective Data Vital Signs: Vital Signs Temp Pulse Resp BP Pulse Ox O2 Del Method 36.9 C 73 16 184/71 H 96 Room Air 04/09/24 08:17 04/09/24 08:23 04/09/24 08:17 04/09/24 08:17 04/09/24 08:17 04/09/24 08:17 Oxygen Delivery Method Room Air Weight: 116 kg Body Mass Index (BMI) 48.3 Intake & Output: Intake and Output for Last 24 Hours 04/07/24 04/08/24 04/09/24 23:59 23:59 23:59 Intake Total 300 / 300 550 / 550 Output Total 1999 / 1999 Balance 300 / 300 -1450 / -1450 Lab / Micro Data 04/09/24 06:04 04/09/24 06:04 Labs: Laboratory Results - last 24 hr 04/08/24 18:55: WBC 3.0 L, RBC 3.77 L, Hgb 10.8 L, Hct 34.7 L, MCV 92.0, MCH 28.6, MCHC 31.1 L, RDW Std Deviation 42.8, RDW Coeff of Danyel 12.7, Plt Count 199, MPV 10.6, Immature Gran % (Auto) 0.300, Neut % (Auto) 42.3 L, Lymph % (Auto) 32.7, [place] % (Auto) 18.3 H, Eos % (Auto) 4.7, Baso % (Auto) 1.7 H, Absolute Neuts (auto) 1.3 L, Absolute Lymphs (auto) 0.98, Nucleated RBC % 0, D-Dimer Quant (PE/DVT) 0.62 H*, Sodium 141, Potassium 3.8, Chloride 109 H, Carbon Dioxide 30.0, Anion Gap 2 L, BUN 13, Creatinine 1.05 H, Est GFR (MDRD) Af Amer 65, Est GFR (MDRD) Non-Af 54 L, BUN/Creatinine Ratio 12.4, Glucose 156 H, Calcium 9.7, Troponin I High Sens 8, B-Natriuretic Peptide 62.9, Triglycerides 138, Cholesterol 190, LDL Cholesterol 91, VLDL Cholesterol 28, HDL Cholesterol 71, TSH 1.260 04/08/24 23:52: Hemoglobin A1c 5.9 H, Troponin I High Sens 7, Folate 6.30 04/09/24 06:04: WBC 3.5 L, RBC 3.73 L, Hgb 10.6 L, Hct 33.8 L, MCV 90.6, MCH 28.4, MCHC 31.4 L, RDW Std Deviation 42.2, RDW Coeff of Danyel 12.7, Plt Count 176, MPV 10.4, Immature Gran % (Auto) 0.300, Neut % (Auto) 44.5 L, Lymph % (Auto) 34.7, [place] % (Auto) 15.1 H, Eos % (Auto) 4.0, Baso % (Auto) 1.4 H, Absolute Neuts (auto) 1.6 L, Absolute Lymphs (auto) 1.22, Nucleated RBC % 0, Sodium 140, Potassium 3.3 L, Chloride 107, Carbon Dioxide 29.0, Anion Gap 4 L, BUN 14, Creatinine 0.87, Estim Creat Clear Calc 61.13, Est GFR (MDRD) Af Amer 81, Est GFR (MDRD) Non-Af 67, BUN/Creatinine Ratio 16.2, Glucose 126 H, Calcium 9.4, Phosphorus 3.0, Magnesium 1.7, Total Bilirubin 0.60, AST 39 H, ALT 37, Alkaline Phosphatase 77, Total Protein 6.6, Albumin 3.1 L, Globulin 3.5, Albumin/Globulin Ratio 0.9 Micro: Microbiology 04/09/24 00:20 Mucosa - Nasopharyngeal Respiratory Panel (PCR) - Final 04/08/24 18:50 Mucosa - Nose SARS-CoV-2, Influenza & RSV (PCR) - Final Radiography Diagnostic Testing: Radiology Impression Chest X-Ray 04/08/24 19:20 IMPRESSION: No radiographic evidence of acute cardiopulmonary disease. Electronically Signed: Rolan Galdamez MD at 19:40 EST , Physical Exam Const alert and no apparent distress HEENT head/scalp atraumatic and moist oral mucous membranes Resp normal respiratory effort, no retractions, no use of accessory muscles and clear to auscultation bilaterally Cardio regular rate, regular rhythm, S1 normal heart sound and S2 normal heart sound GI normal to inspection, nondistended, normoactive bowel sounds, soft to palpation, non-tender and non-distended Extremity General Extremity: Negative for edema Neuro Sensorium / Orientation: awake Assessment & Plan Assessment/Plan (1) Hypertensive urgency: (2) Acute bronchitis: QUALIFIERS: Bronchitis organism: unspecified organism Qualified Code(s): J20.9 - Acute bronchitis, unspecified (3) Respiratory insufficiency: PLAN: Plan Hypertensive Urgency: * initial blood pressure of 210/80 mmHg. Since improved * home medications: losartan 25/d, metoprolol succinate 50/d, HCTZ 12.5-25/d. * Will increase losartan to 50/d and recommend taking her HCTZ daily. * Echo within normal limits Hypoxia * required oxygen with activity initially, but not today. * treated for bronchitis * continue medrol dose pack and doxycycline. Chronic conditions: * obesity class III: complicates care and recovery * HLP: continue statin VTE prophylaxis: enoxaparin. DC home. DW family at bedside.
[2024-04-09] MEDS: Furosemide 40 MG Tablet PO (10:39)
[2024-04-09] MEDS: Potassium Chloride Oral Tablet 20 MEQ 40 MEQ PO (10:39)
[2024-04-09] MEDS: hydrALAZINE 20 MG/ML Vial 10 MG IV (10:46)
--- NOTE | 2024-04-09 14:42 | DS.PCM_ITS ---
Providers Date of Admission: 04/08/24 Primary Care Physician: Dr. Tracy Shelton MD Reason For Visit: HYPERTENSIVE URGENCY, ACUTE BRONCHITIS AND Diagnosis Discharge Diagnosis (1) Hypertensive urgency: Status: Acute Code(s): I16.0 - Hypertensive urgency (2) Acute bronchitis: Status: Acute Code(s): J20.9 - Acute bronchitis, unspecified Qualifiers: Bronchitis organism: unspecified organism Qualified Code(s): J20.9 - Acute bronchitis, unspecified (3) Respiratory insufficiency: Status: Acute Code(s): R06.89 - Other abnormalities of breathing Plan Hypertensive Urgency: * initial blood pressure of 210/80 mmHg. Since improved * home medications: losartan 25/d, metoprolol succinate 50/d, HCTZ 12.5-25/d. * Will increase losartan to 50/d and recommend taking her HCTZ daily. * Echo within normal limits Hypoxia * required oxygen with activity initially, but not today. * treated for bronchitis * continue medrol dose pack and doxycycline. Chronic conditions: * obesity class III: complicates care and recovery * HLP: continue statin VTE prophylaxis: enoxaparin. DC home. DW family at bedside. Medications at Discharge Home Medications Omeprazole [Prilosec] 40 mg PO DAILY 01/21/13 cholecalciferol (vitamin D3) 50 mcg (2,000 unit) tablet (Vitamin D3) 2,000 unit PO DAILY 01/21/13 biotin 2,500 mcg capsule 5,000 mcg PO DAILY 04/10/16 cyanocobalamin (vitamin B-12) 2,000 mcg tablet 2,000 mcg PO DAILY 04/10/16 diazepam 2 mg tablet 2 mg PO PRN PRN NERVOUS STOMACH 04/10/16 anastrozole 1 mg tablet 1 mg PO DAILY 04/08/24 pravastatin 10 mg tablet 10 mg PO DAILY cholesterol 04/08/24 albuterol sulfate 90 mcg/actuation aerosol inhaler 1 inh inhalation Q6H PRN shortness of breath or wheezing #6.7 grams 04/09/24 doxycycline monohydrate 100 mg capsule 100 mg PO BID #8 caps 04/09/24 hydrochlorothiazide 12.5 mg capsule 25 mg (2 x 12.5 mg) PO DAILY #30 caps 04/09/24 losartan 50 mg tablet 50 mg PO DAILY #30 tabs 04/09/24 metoprolol succinate 50 mg tablet,extended release 24 hr 50 mg PO DAILY blood pressure 04/09/24 prednisone 20 mg tablet 40 mg (2 x 20 mg) PO DAILY #10 tabs 04/09/24 Hospital Course Summary of Care Provided Hospital Course: Greater than 40 minutes Weight / BMI Weight Weight: 116 kg Body Mass Index (BMI) 48.3 ABG / Lab / Microbiology Data 04/09/24 06:04 04/09/24 06:04 Laboratory: Laboratory Results - last 24 hr 04/08/24 18:55: WBC 3.0 L, RBC 3.77 L, Hgb 10.8 L, Hct 34.7 L, MCV 92.0, MCH 28.6, MCHC 31.1 L, RDW Std Deviation 42.8, RDW Coeff of Danyel 12.7, Plt Count 199, MPV 10.6, Immature Gran % (Auto) 0.300, Neut % (Auto) 42.3 L, Lymph % (Auto) 32.7, Fisher % (Auto) 18.3 H, Eos % (Auto) 4.7, Baso % (Auto) 1.7 H, Absolute Neuts (auto) 1.3 L, Absolute Lymphs (auto) 0.98, Nucleated RBC % 0, D-Dimer Quant (PE/DVT) 0.62 H*, Sodium 141, Potassium 3.8, Chloride 109 H, Carbon Dioxide 30.0, Anion Gap 2 L, BUN 13, Creatinine 1.05 H, Est GFR (MDRD) Af Amer 65, Est GFR (MDRD) Non-Af 54 L, BUN/Creatinine Ratio 12.4, Glucose 156 H, Calcium 9.7, Troponin I High Sens 8, B-Natriuretic Peptide 62.9, Triglycerides 138, Cholesterol 190, LDL Cholesterol 91, VLDL Cholesterol 28, HDL Cholesterol 71, TSH 1.260 04/08/24 23:52: Hemoglobin A1c 5.9 H, Troponin I High Sens 7, Folate 6.30 04/09/24 06:04: WBC 3.5 L, RBC 3.73 L, Hgb 10.6 L, Hct 33.8 L, MCV 90.6, MCH 28.4, MCHC 31.4 L, RDW Std Deviation 42.2, RDW Coeff of Danyel 12.7, Plt Count 176, MPV 10.4, Immature Gran % (Auto) 0.300, Neut % (Auto) 44.5 L, Lymph % (Auto) 34.7, Fisher % (Auto) 15.1 H, Eos % (Auto) 4.0, Baso % (Auto) 1.4 H, Absolute Neuts (auto) 1.6 L, Absolute Lymphs (auto) 1.22, Nucleated RBC % 0, Sodium 140, Potassium 3.3 L, Chloride 107, Carbon Dioxide 29.0, Anion Gap 4 L, BUN 14, Creatinine 0.87, Estim Creat Clear Calc 61.13, Est GFR (MDRD) Af Amer 81, Est GFR (MDRD) Non-Af 67, BUN/Creatinine Ratio 16.2, Glucose 126 H, Calcium 9.4, Phosphorus 3.0, Magnesium 1.7, Total Bilirubin 0.60, AST 39 H, ALT 37, Alkaline Phosphatase 77, Total Protein 6.6, Albumin 3.1 L, Globulin 3.5, Albumin/Globulin Ratio 0.9 Microbiology: Microbiology 04/09/24 00:20 Mucosa - Nasopharyngeal Respiratory Panel (PCR) - Final 04/08/24 18:50 Mucosa - Nose SARS-CoV-2, Influenza & RSV (PCR) - Final Radiography Diagnostic Testing: Radiology Impression Chest X-Ray 04/08/24 19:20 IMPRESSION: No radiographic evidence of acute cardiopulmonary disease. Electronically Signed: Rolan Galdamez MD at 19:40 EST , Echocardiogram 04/08/24 21:51 Interpretation Summary Mild concentric left ventricular hypertrophy. The left ventricular ejection fraction is 65 %. Stage 1 diastolic dysfunction. Ordering Physician: Cale Palacio Performed By: Manuel Grijalva RCS D/C Instructions Discharge Diet: 2000 mg Sodium Diet DC O2, CPAP, BIPAP Needs RN Home O2 Qualification: Home O2 Qualification: Is the patient on home oxygen No 04/09/24 14:10 Home O2 Qualification: AT REST 1- Pulse Ox at rest 97 04/09/24 14:10 Home O2 Qualification: WITH AMBULATION 1- Pulse Ox with ambulation 94 04/09/24 14:10 1- Oxygen Flow Rate with 0 04/09/24 14:10 ambulation Home O2 Discharge instructions: No Meaningful Use Info Meaningful Use Meaningful Use Diagnoses (Choose all that apply): None applicable Ischemic Stroke Statin Dosing Therapy Reference: STATIN DOSE THERAPY REFERENCE: * Patients > 75 years receive moderate or high dose statin therapy. * Patients 75 years or YOUNGER should receive HIGH intensity statin dose unless contraindicated. You will be required to document reason for non-treatment if statin daily dose does not meet guidelines. HIGH DOSE STATIN THERAPY DAILY Atorvastatin > than or = to 40 mg Rosuvastatin > than or = to 20 mg Amlodipine + Atorvastatin > than or = to 2.5/40 mg Ezetimibe + Simvastatin 10/80 mg Simvastatin 80mg Discharge Plan Admission Admit Date/Time: 04/08/24 21:41 Primary Reason for Your Visit: hypertensive urgency Attending Provider: Inocente Allred Primary Care Provider: Tracy Shelton Consulting Providers: Cale Palacio Instructions Additional Instructions / Restrictions: You had hypertensive urgency, very high blood pressure, I have increased your losartan from 25-50 daily. You state that you were not taking your hydrochlorothiazide daily, I recommend taking a daily to help with your blood pressure. He also may have bronchitis at which he been started on antibiotics and steroids. If you do have worsening of your shortness of breath, notify your physician or return to the emergency room. Also added albuterol to take as needed for shortness of breath. Discharge Orders/Prescriptions Prescriptions: New losartan 50 mg Tablet 50 mg PO DAILY Qty: 30 0RF doxycycline monohydrate 100 mg Capsule 100 mg PO BID Qty: 8 0RF prednisone 20 mg tablet 40 mg PO DAILY Qty: 10 0RF albuterol sulfate 90 mcg/actuation HFA aerosol inhaler 1 inh inhalation Q6H PRN (Reason: shortness of breath or wheezing) Qty: 6.7 0RF Continued cholecalciferol (vitamin D3) [Vitamin D3] 2,000 UNIT tablet 2,000 unit PO DAILY Patient Comments: SUPPLEMENT Omeprazole [Prilosec] 40 MG capsule 40 mg PO DAILY Patient Comments: ACID REFLUX diazepam 2 MG tablet 2 mg PO PRN PRN (Reason: NERVOUS STOMACH) biotin 2,500 MCG capsule 5,000 mcg PO DAILY cyanocobalamin (vitamin B-12) 2,000 MCG tablet 2,000 mcg PO DAILY anastrozole 1 mg tablet 1 mg PO DAILY pravastatin 10 mg tablet 10 mg PO DAILY metoprolol succinate 50 mg tablet extended release 24 hr 50 mg PO DAILY Changed hydrochlorothiazide 12.5 mg capsule 25 mg PO DAILY Qty: 30 0RF Discontinued losartan 25 mg tablet 25 mg PO DAILY Referrals / Follow Up: Tracy Shelton MD [Primary Care Provider] - Within 2 Weeks Disposition Disposition (needs filled in before D/C Order can be placed): Home, Self Care Charges/Coding Visit Charges Inpatient E&M: 23124 Disch Hosp >30min
[2024-04-11 10:23] LABS: HIV - WCH Non-Reactive (Nonreactive); Vitamin B12 > 2000 pg/mL (211-911)
== END 2024-04-09 15:45 | disposition home or self-care (01) ==
LOC: ED 21:30 → PCU 22:03
PROVIDERS: Physician Assistant; Admitting Provider Internal Medicine; Emergency Provider Emergency Medicine; PCP Internal Medicine
DX: I16.0 Hypertensive urgency (principal); E66.2 Morbid (severe) obesity with alveolar hypoventilation; Z68.42 Body mass index [BMI] 45.0-49.9, adult; I10 Essential (primary) hypertension; E78.00 Pure hypercholesterolemia, unspecified; M19.90 Unspecified osteoarthritis, unspecified site; J20.9 Acute bronchitis, unspecified; K21.9 Gastro-esophageal reflux disease without esophagitis; D64.9 Anemia, unspecified; I89.0 Lymphedema, not elsewhere classified; Z79.899 Other long term (current) drug therapy; F41.9 Anxiety disorder, unspecified; D72.819 Decreased white blood cell count, unspecified; R06.89 Other abnormalities of breathing
CPT/HCPCS: 36415; 71046; 80048; 80053; 80061; 82607; 82746; 83036; 83735; 83880; 84100; 84443; 84484; 85025; 85379; 86703; 87631; 87633; 93005; 93306; 94668; 96372; 96374; 96375; 96376; 97161; 97166; 97802; 99221; 99283; Q9957; A4216; G0378; J1940